=== PATIENT | male | born 1975 | race Caucasian/White ===

== ENCOUNTER 2017-04-29 18:11 | Emergency (ER) | payer OTHER ==
[2017-04-29 18:24] VITALS: BP 119/72
[2017-04-29] MEDS ORDERED: RABIES VACCINE 2.5 UNIT SYRINGE IM ONE ×2 (19:24→19:34)
[2017-04-29] MEDS ORDERED: RABIES IMMUNE GLOBULIN 300 UNITS/2 ML IM STA (19:24)
--- NOTE | 2017-04-29 19:27 | ED Physician Documentation ---
History of Present Illness - Stated complaint Stated Complaint: POSSIBLE RABIES EXPOSURE - Chief complaint Chief Complaint: General - History obtained from History obtained from: Patient - History of Present Illness Timing: Other (2 nights ago he had a bat in his room overnight, the bat was killed but testing was inconclusive for rabies and he was referred here for vaccination. He has never been vaccinated.) Review of Systems Constitutional: reports: Reviewed and negative Eyes: reports: Reviewed and negative Ears: reports: Reviewed and negative PD PAST MEDICAL HISTORY - Past Medical History Past Medical History: No - Past Surgical History Past Surgical History: Yes HEENT: Cataracts - Present Medications Home Medications: Ambulatory Orders Medication Instructions Recorded Confirmed No Known Home Medications [No 04/29/17 04/29/17 Known Home Medications] - Allergies Allergies/Adverse Reactions: Allergies Allergy/AdvReac Type Severity Reaction Status Date / Time No Known Drug Allergies Allergy Verified 04/29/17 18:24 - Social History Does the pt smoke?: No Smoking Status: Never smoker PD ED PE NORMAL - Vitals Vital signs reviewed: Yes - General General: Alert and oriented X 3, No acute distress - Derm Derm: Normal color, Warm and dry - Neuro Neuro: Alert and oriented X 3, Normal speech - Psych Psych: Normal mood, Normal affect Results - Vitals Vitals: Vital Signs - 24 hr 04/29/17 18:22 Temperature 36.6 C Heart Rate 68 Respiratory 16 Rate Blood Pressure 119/72 O2 Saturation 100 Oxygen O2 Source Room air PD MEDICAL DECISION MAKING - ED course ED course: The pros and cons of rabies vaccination and immunoglobulin were discussed with him and he wanted to go ahead with it he was administered these per CDC guidelines. Departure - Departure Disposition: 01 Home, Self Care Clinical Impression: Rabies contact Condition: Good Record reviewed to determine appropriate education?: Yes Comments: You will need to call your doctor and arrange for repeat rabies vaccination in 3 days (May 02) and in 1 week and in 2 weeks from today. If unable, return to the emergency department for these doses. Discharge Date/Time: 04/29/17 21:06
[2017-04-29] MEDS ORDERED: RABIES IMMUNE GLOBULIN 300 UNITS/2 ML IM ONE (19:34)
== END 2017-04-29 21:06 | disposition home or self-care (01) ==
LOC: ED 18:11
DX: Z20.3 Contact with and (suspected) exposure to rabies (principal); Z23 Encounter for immunization
CPT/HCPCS: 90471; 96372; 99283

== ENCOUNTER 2017-05-02 12:14 | Emergency (ER) | payer OTHER ==
[2017-05-02] MEDS ORDERED: RABIES VACCINE 2.5 UNIT SYRINGE IM ONE ×2 (12:19→12:30)
--- NOTE | 2017-05-02 12:25 | ED Physician Documentation ---
History of Present Illness - Stated complaint Stated Complaint: RABBIES SHOT - Chief complaint Chief Complaint: General - Additonal information Additional information: hx from pt 41 male to ER for day 3 rabies vaccine no other concerns his PMD has arranged for last two doses to be given at [facility] but [facility] not open Sundays Review of Systems Constitutional: denies: Fever PD PAST MEDICAL HISTORY - Past Surgical History Past Surgical History: Yes HEENT: Cataracts - Present Medications Home Medications: Ambulatory Orders Medication Instructions Recorded Confirmed No Known Home Medications [No 04/29/17 05/02/17 Known Home Medications] - Allergies Allergies/Adverse Reactions: Allergies Allergy/AdvReac Type Severity Reaction Status Date / Time No Known Drug Allergies Allergy Verified 05/02/17 12:20 - Social History Does the pt smoke?: No Smoking Status: Never smoker PD ED PE NORMAL - Vitals Vital signs reviewed: Yes - Cardiac Cardiac: RRR - Respiratory Respiratory: No respiratory distress, Clear bilaterally Results - Vitals Vitals: Vital Signs - 24 hr 05/02/17 12:18 Temperature 36 C L Heart Rate 69 Respiratory 16 Rate Blood Pressure 126/75 O2 Saturation 100 Oxygen O2 Source Room air Departure - Departure Disposition: 01 Home, Self Care Clinical Impression: Rabies contact Condition: Good Instructions: Rabies Comments: You still need two more doses of rabies vaccine on day 7 and day 14. Your PMD has arranged for you to get these doses at the [facility]
[2017-05-02 12:48] VITALS: BP 113/64
== END 2017-05-02 12:47 | disposition home or self-care (01) ==
LOC: ED 12:14
DX: Z20.3 Contact with and (suspected) exposure to rabies (principal); Z23 Encounter for immunization
CPT/HCPCS: 90471; 99283